=== PATIENT | female | born 1955 | race Caucasian/White ===

== ENCOUNTER → 2018-04-23 | Outpatient (CLI) | payer OTHER | LOC: FIMAGING 10:41 | PROVIDERS: ATTEND Internal Medicine | DX: J34.89 Other specified disorders of nose and nasal sinuses (principal) ==

== ENCOUNTER 2018-05-28 04:19 | Observation (INO) | payer OTHER ==
[2018-05-28] MEDS ORDERED: ONDANSETRON 4 MG/2 ML VIAL IVP ONE ×2 (04:27→06:04)
[2018-05-28] MEDS ORDERED: NS 1,000 ML IV ONE ×3 (04:27→07:02)
--- NOTE | 2018-05-28 04:37 | EDPHY ---
H & P Stated Complaint: Abd pain, nausea x2 days, abd cramping Time Seen by Provider: 05/28/18 04:35 HPI/ROS: HPI CHIEF COMPLAINT: Abdominal pain, nausea, vomiting. 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 Denies any diarrhea. Last bowel movement was 2 days ago. Brown stool. No blood. She reports she has been ill with abdominal issue since around the new year's this happened her multiple times she did see her primary care doctor and was told she most likely has a viral illness. She denies any shortness of breath. Denies significant chest pain. She does have a rather bad nausea. Diffuse abdominal pain and abdominal cramping. She denies any fever. She does report that when she goes to eat she is able to keep down however has rather significant nausea after eating abdominal upset with bloating , states her abdomen hurts hearing gurgles. Past Medical History: Denies significant medical history Past Surgical History: Denies significant surgical history Social History: Social alcohol, denies daily use of drugs or tobacco. She is an OR nurse at [employer]. Family History: Noncontributory ROS REVIEW OF SYSTEMS: 10 Systems were reviewed and negative with the exception of the elements mentioned in the history of present illness. Exam Constitutional appears well nontoxic triage nursing summary reviewed, vital signs reviewed, awake/alert. Vital signs stable Eyes normal conjunctivae and sclera, EOMI, PERRLA. HENT normal inspection, atraumatic, moist mucus membranes, no epistaxis, neck supple/ no meningismus, no raccoon eyes. Respiratory clear to auscultation bilaterally, normal breath sounds, no respiratory distress, no wheezing. Cardiovascular rate normal, regular rhythm, no murmur, no edema, distal pulses normal. Gastrointestinal mild tender palpation diffusely, no peritoneal signs. Genitourinary no CVA tenderness. Musculoskeletal no midline vertebral tenderness, full range of motion, no calf swelling, no tenderness of extremities, no meningismus, good pulses, neurovascularly intact. Skin pink, warm, & dry, no rash, skin atraumatic. Neurologic awake, alert and oriented x 3, AAOx3, moves all 4 extremities equally, motor intact, sensory intact, CN II-XII intact, normal cerebellar, normal vision, normal speech. Psychiatric normal mood/affect. Heme/Lymph/Immune no lymphadenopathy. Differential Diagnosis: Differential diagnosis includes but is not limited to and in no particular order: Bowel obstruction, appendicitis, gallbladder disease, diverticulitis, colitis, enteritis, perforated viscus, gastritis, GERD , esophagitis, urinary tract infection, pyelonephritis, kidney stones Medical Decision Making: Plan for this patient IV establishment IV fluid bolus 2 L, basic labs, CT scan abdomen pelvis with IV contrast, stool studies, IV Zofran nausea. Re-evaluate Re-evaluation: CT scan abdomen pelvis with IV contrast faxed to me by direct Radiology at 5:35 a.m. This shows suspected tiny calcified gallstones no CT signs of cholecystitis there is colonic diverticulosis without signs of diverticulitis Additionally in the detailed report there is a peripheral left lower lobe nodular density measuring 4.3 mm. Point care troponin 0.00 EKG interpretation by me on record in [employer] system. Impression time of EKG 4:40 a.m., sinus rhythm rate of 66, Q-waves noted V1 V2 no significant acute ischemia. Repeat EKG time 6:44 a.m., sinus rhythm Q-waves noted again V1 V2 EKG performed due to nausea patient has no chest pain. Appreciate acute ischemia otherwise. Patient is received 2 L of fluid, additionally IV Zofran 4 mg dose x2, has persistent nausea, IV Phenergan 6.25 mg ordered. Ultrasound results of the gallbladder pending Repeat troponin 0.02. Ultrasound of the gallbladder shows no significant sonographic abnormality. Faxed me by direct Radiology 6:27 a.m.. 0701: Patient re-evaluated at this time: Still complains of ongoing nausea no chest pain or shortness of breath she does complain of some lower abdominal cramps. . Given her ongoing symptoms plan will be for admission the hospital for observation for ongoing nausea and abdominal cramps. The patient's blood work, CT scan, ultrasound, lab work is rather unremarkable. I do not have a great explanation for nausea. She has no chest pain or shortness of breath. Her troponins have been negative. The patient has had negative troponins x2, EKG showed Q-wave through V1 V2 on both EKGs. Her EKGs appear Abnormal I will consult Cardiology as she has nausea. She has no chest pain shortness of breath or troponin negative x2. I did discuss her EKGs and troponins with the hospitalist service. Due to ongoing nausea she would like to be admitted. Plan for admission 3rd L fluid hung. Stool studies ordered. I will consult the hospitalist service. 0721: I did consult Cardiology Dr. Yoselin Shaffer and has sent her the patient's EKGs for further evaluation. Again the patient has no chest pain or troponins are negative. Cardiology service will see patient, does not feel this is a STEMI. Would continue to admit patient for nausea/ cardiology service to see. Source: Patient - Personal History Current Tetanus Diphtheria and Acellular Pertussis (TDAP): Yes - Medical/Surgical History Hx Asthma: No Hx Chronic Respiratory Disease: No Hx Diabetes: No Hx Cardiac Disease: No Hx Renal Disease: No Hx Cirrhosis: No Hx Alcoholism: No Hx HIV/AIDS: No Hx Splenectomy or Spleen Trauma: No Other PMH: Tonsiletomy - Social History Smoking Status: Never smoked Constitutional: Initial Vital Signs Temperature (C) 36.8 C 05/28/18 04:20 Heart Rate 77 05/28/18 04:20 Respiratory Rate 17 05/28/18 04:20 Blood Pressure 143/84 H 05/28/18 04:20 O2 Sat (%) 96 05/28/18 04:20 O2 Delivery Mode Room Air Allergies/Adverse Reactions: Penicillins Allergy (Unknown, Verified 05/28/18 07:42) Rash Home Medications: Medication Instructions Recorded Aspirin [Aspirin 81mg (*)] 81 mg PO DAILY 05/18/13 Multivitamins [Multivitamin (*)] 1 each PO DAILY 07/11/14 Acetaminophen [Tylenol 325mg (*)] 325 mg PO Q6 PRN 05/28/18 Glucosamine Sulfate [Glucosamine 500 mg PO DAILY 05/28/18 Sulfate 500 MG (*)] Ondansetron Odt [Zofran Odt 4 mg 4 mg PO Q4 #30 tab 05/28/18 (*)] Medical Decision Making - Data Points Laboratory Results: Laboratory Results 05/28/18 04:25 05/28/18 04:25 Medications Given: Discontinued Medications Famotidine (Pepcid) 20 mg IVP EDNOW ONE Stop: 05/28/18 07:09 Last Admin: 05/28/18 07:31 Dose: 20 mg Sodium Chloride (Ns) 1,000 mls @ 0 mls/hr IV EDNOW ONE; Wide Open PRN Reason: Protocol Stop: 05/28/18 04:28 Last Admin: 05/28/18 04:33 Dose: 1,000 mls Sodium Chloride (Ns) 1,000 mls @ 0 mls/hr IV EDNOW ONE; Wide Open PRN Reason: Protocol Stop: 05/28/18 04:28 Last Admin: 05/28/18 04:33 Dose: 1,000 mls Sodium Chloride (Ns) 1,000 mls @ 0 mls/hr IV ONCE ONE PRN Reason: Wide Open Stop: 05/28/18 07:03 Last Admin: 05/28/18 07:07 Dose: 1,000 mls Metoprolol Tartrate (Lopressor) 12.5 mg PO BID LINDA Stop: 11/24/18 11:14 Last Admin: 05/28/18 13:33 Dose: 12.5 mg Ondansetron HCl (Zofran) 4 mg IVP EDNOW ONE Stop: 05/28/18 04:28 Last Admin: 05/28/18 04:38 Dose: 4 mg Ondansetron HCl (Zofran) 4 mg IVP EDNOW ONE Stop: 05/28/18 06:05 Last Admin: 05/28/18 06:12 Dose: 4 mg Promethazine HCl (Phenergan) 6.25 mg IVP EDNOW ONE Stop: 05/28/18 06:44 Last Admin: 05/28/18 06:43 Dose: 6.25 mg Point of Care Test Results: Chemistry 05/28/18 05/28/18 06:42 04:37 POC Troponin I 0.02 ng/mL ng/mL 0.00 ng/mL ng/mL (0.00-0.08) (0.00-0.08) Departure - Departure Disposition: [facility] Acute Clinical Impression: Nausea, Pulmonary nodule, Abnormal EKG Abdominal pain Qualifiers: Abdominal location: unspecified location Qualified Code(s): R10.9 - Unspecified abdominal pain Condition: Fair
[2018-05-28 04:46] LABS: PLATELET COUNT 242 10^3/uL (150-400)
[2018-05-28 04:54] LABS: INR 0.9 (0.83-1.16); PROTIME(PATIENT) 11.8 SEC (12.0-15.0)
[2018-05-28] MEDS ORDERED: IOPAMIDOL (ISOVUE-300) 100 ML BTL ONE (05:07)
[2018-05-28] MEDS ORDERED: PROMETHAZINE HCL 25 MG/ML INJ ONE (06:42)
[2018-05-28] MEDS ORDERED: PROMETHAZINE HCL 25 MG/ML INJ IVP ONE (06:43)
[2018-05-28] MEDS ORDERED: FAMOTIDINE 20 MG/2 ML SDV IVP ONE (07:08)
[2018-05-28] MEDS ORDERED: PROMETHAZINE HCL 25 MG/ML INJ IVP PRN (07:14)
[2018-05-28] MEDS ORDERED: LORazepam 0.5 MG TAB PO PRN (07:14)
[2018-05-28] MEDS ORDERED: diphenhydrAMINE 25 MG CAP PO PRN (07:14)
[2018-05-28] MEDS ORDERED: ONDANSETRON 4 MG/2 ML VIAL IVP PRN (07:14)
[2018-05-28] MEDS ORDERED: IBUPROFEN 200 MG TAB PO PRN (07:14)
[2018-05-28] MEDS ORDERED: ONDANSETRON DISINTEGRATING 4 MG TAB PO PRN (07:14)
[2018-05-28] MEDS ORDERED: ACETAMINOPHEN 325 MG TAB PO PRN ×2 (07:14→10:48)
[2018-05-28] MEDS ORDERED: METOPROLOL TARTRATE 25 MG TAB PO SCH (11:15)
--- NOTE | 2018-05-28 11:29 | GHP ---
[f rep st] HISTORY AND PHYSICAL DATE OF ADMISSION: 05/28/2018 CHIEF COMPLAINT: Abdominal pain. HISTORY OF PRESENT ILLNESS: This is a 63-year-old female who began having abdominal discomfort on , described as whole abdomen, a "gurgling" sound with significant colicky-type pain. It i s alleviated with Imodium that she has been taking. She is having relatively normal bowel movements, although they have been slightly soft. She had some severe nausea today, but no emesis. She had no t had any recent travel. Her has had similar, though not quite as severe, symptoms. She has seen her PCP a few times for it. He started her on Prilosec, but this did not seem to help. She dooley d a celiac panel that was negative. She tried a lactose-free diet, as well as a gluten-free diet whi ch did not have any effect on her symptoms. These seem to occur about once a week. She has never dooley d an endoscopy or colonoscopy before. In the emergency department, an EKG was checked which showed Q-waves in leads V1 and V2. She has had occasional twinges of pain over her left lower ribs. She is able to exercise without any change in her exercise tolerance. She has never had any lower extremity edema. She does not have any history of early family coronary disease. She has had a mildly elevated LDL in the past. PAST MEDICAL/SURGICAL HISTORY: Tonsillectomy. MEDICATIONS: Please see medication reconciliation. ALLERGIES: Penicillin. FAMILY HISTORY: Her mother had a stroke at 96 years old. SOCIAL HISTORY: She does not smoke. She occasionally drinks alcohol. REVIEW OF SYSTEMS: A 10-point review of systems is conducted and is negative except per HPI. PHYSICAL EXAM: VITAL SIGNS: Blood pressure 179/85, heart rate 72, respiration rate 12, saturating 9 6% on room air, temperature 36.9. GENERAL: Ms. Staley is a pleasant female who is resting comfortab ly in no acute distress. HEENT: Shows her to be normocephalic, atraumatic. CARDIOVASCULAR: Regula r rate and rhythm. There is no murmurs, rubs, or gallops. No elevated JVD. No lower extremity loretta a. PULMONARY: Lungs clear to auscultation bilaterally. ABDOMEN: Soft, nontender, nondistended. S he has normal bowel sounds. SKIN: No rash. : No [place]. NEUROLOGIC: Shows her to be alert and oriented x3. She is moving all extremities. PSYCHIATRIC: Normal mood and affect. LABORATORY DATA: Labs show a white count of 8, INR 0.9, lactate 1.1, creatinine 1.2. Initial two tr oponins are negative. Urinalysis is negative. DATA: 1. Discussed with Dr. Zapata. 2. Abdominal CT shows nothing acute. 3. Right upper quadrant ultrasound is normal. 4. EKG, which I personally viewed and interpreted, shows Q-waves with a biphasic T-wave in leads V1 and V2. IMPRESSION AND PLAN: 1. Abdominal pain: It is not really clear what is causing this. She has negative imaging, normal l abs, unremarkable exam. I have discussed with Dr. Blunt who will consult. We will treat her sympt omatically for now. She will get IV proton pump inhibitor, as well as antiemetics as needed. 2. Abnormal EKG: Cardiology has been consulted by the emergency department. We will defer further workup to her. We will place her on telemetry for now. 3. Hypertension: We will give her low-dose metoprolol oral for now. I do not think this represents hypertensive emergency at this point. We will follow her blood pressure with treatment with oral ag ents. /[id number]/MODL
--- NOTE | 2018-05-28 12:36 | ASMTCMCOM ---
CM Note CM Note Notes: CM reviewed patients chart. Patient is a 63 year old female. Admitted for abdominal pain. Patient will mostly likely discharge independent when medically stable. CM available for changes. Plan: Independent Date Signed: 05/28/2018 12:34 PM Electronically Signed By:Guerline Hylton
--- NOTE | 2018-05-28 14:41 | PDCARCONS ---
Cardiology Consult Reason for Consult: Nausea with ECG changes noted Chief Complaint: Nausea Requesting Physician: Hospitalist team History of Present Illness: Patient is a 63 y/o female with relatively unremarkable past medical/ cardiovascular history (no CAD, HTN, HLP, or DM), who presents to [facility] ER with complaints of relatively intractable nausea. Since the beginning of the year, the patient has noted several bouts of nausea with abdominal cramping and pains about every 7-10 days. No changes to bowel movements have been noted - no diarrhea or constipation, but as a result of the nausea, weight loss of about 20 pounds has been noted. No chest pains or pressure (but there was a mild left lower lateral "twinge" noted with this most recent event), no PND or orthopnea. No fevers or chills (, present in the room questioned if there were bouts of fever possibly noted). No emesis has been noted with the nausea. Work with PCP has not revealed any obvious etiology. Treatment that has worked for the patient has been Imodium and PPI therapy. No international travel. Trial with gluten free diet has not resulted in improvement of symptoms. Regular exercise (riding horses three times per week) without new limitations noted. One of her best days was the day prior to this most recent event. At present, the patient is resting comfortably. Remainder of the 12 point review of systems was unremarkable History Information - Allergies/Home Medication List Allergies/Adverse Reactions: Penicillins Allergy (Unknown, Verified 05/28/18 07:42) Rash Home Medications: Aspirin [Aspirin 81mg (*)] 81 mg PO DAILY 05/18/13 [Last Taken 05/25/18] Multivitamins [Multivitamin (*)] 1 each PO DAILY 07/11/14 [Last Taken 05/25/18] Acetaminophen [Tylenol 325mg (*)] 325 mg PO Q6 PRN 05/28/18 [Last Taken Unknown] Glucosamine Sulfate [Glucosamine Sulfate 500 MG (*)] 500 mg PO DAILY 05/28/18 [ Last Taken Unknown] I have personally reviewed and updated: family history, medical history, social history, surgical history Past Medical History: - Past Medical History no pertinent PMH - Surgical History Reports: no pertinent surgical hx - Family History Positive for: stroke - Social History Smoking Status: Never smoked Alcohol Use: Rarely Drug Use: None Cardiac History - Cardiac History Cardiac Risk Factors: none Timing/Duration: Weeks Severity: moderate, severe Severity Scale: 7 Location: epigastric Activities at Onset: none Modifying Factors: improves with: antacids Associated Symptoms: loss of appetite Physical Exam Physical Exam: Temp Pulse Resp BP Pulse Ox 36.7 C 67 16 173/95 H 95 05/28/18 13:20 05/28/18 13:20 05/28/18 13:20 05/28/18 13:20 05/28/18 13:20 Constitutional: no apparent distress, appears nourished, not in pain Eyes: PERRL, EOMI Ears, Nose, Mouth, Throat: moist mucous membranes, hearing normal, ears appear normal Cardiovascular: regular rate and rhythym, no murmur, rub, or gallop, pulses symmetric bilaterally, No systolic murmur, No diastolic murmur, No JVD Peripheral Pulses: 2+: dorsalis-pedis (R), dorsalis-pedis (L) Respiratory: no respiratory distress, no rales or rhonchi, clear to auscultation Gastrointestinal: normoactive bowel sounds Skin: warm, normal color Musculoskeletal: full muscle strength Neurologic: AAOx3, sensation intact bilaterally, CN II-XII Intact Psychiatric: interacting appropriately, not anxious, not encephalopathic Lab and Imaging 05/28/18 04:25 05/28/18 04:25 WBC 8.12 10^3/uL (3.80-9.50) 05/28/18 04:25 RBC 5.25 10^6/uL (4.18-5.33) 05/28/18 04:25 Hgb 16.1 g/dL (12.6-16.3) 05/28/18 04:25 Hct 46.8 % (38.0-47.0) 05/28/18 04:25 MCV 89.1 fL (81.5-99.8) 05/28/18 04:25 MCH 30.7 pg (27.9-34.1) 05/28/18 04:25 MCHC 34.4 g/dL (32.4-36.7) 05/28/18 04:25 RDW 12.3 % (11.5-15.2) 05/28/18 04:25 Plt Count 242 10^3/uL (150-400) 05/28/18 04:25 MPV 10.3 fL (8.7-11.7) 05/28/18 04:25 Neut % (Auto) 44.0 % (39.3-74.2) 05/28/18 04:25 Lymph % (Auto) 39.0 % (15.0-45.0) 05/28/18 04:25 [place] % (Auto) 12.3 % (4.5-13.0) 05/28/18 04:25 Eos % (Auto) 2.5 % (0.6-7.6) 05/28/18 04:25 Baso % (Auto) 2.0 % (0.3-1.7) H 05/28/18 04:25 Nucleat RBC Rel Count 0.0 % (0.0-0.2) 05/28/18 04:25 Absolute Neuts (auto) 3.57 10^3/uL (1.70-6.50) 05/28/18 04:25 Absolute Lymphs (auto) 3.17 10^3/uL (1.00-3.00) H 05/28/18 04:25 Absolute Monos (auto) 1.00 10^3/uL (0.30-0.80) H 05/28/18 04:25 Absolute Eos (auto) 0.20 10^3/uL (0.03-0.40) 05/28/18 04:25 Absolute Basos (auto) 0.16 10^3/uL (0.02-0.10) H 05/28/18 04:25 Absolute Nucleated RBC 0.00 10^3/uL (0-0.01) 05/28/18 04:25 Immature Gran % 0.2 % (0.0-1.1) 05/28/18 04:25 Immature Gran # 0.02 10^3/uL (0.00-0.10) 05/28/18 04:25 PT 11.8 SEC (12.0-15.0) L 05/28/18 04:25 INR 0.90 (0.83-1.16) 05/28/18 04:25 APTT 25.2 SEC (23.0-38.0) 05/28/18 04:25 VBG Lactic Acid 1.1 mmol/L (0.7-2.1) 05/28/18 04:25 Sodium 141 mEq/L (135-145) 05/28/18 04:25 Potassium 4.2 mEq/L (3.5-5.2) 05/28/18 04:25 Chloride 111 mEq/L (97-110) H 05/28/18 04:25 Carbon Dioxide 23 mEq/l (22-31) 05/28/18 04:25 Anion Gap 7 mEq/L (6-14) 05/28/18 04:25 BUN 14 mg/dL (7-23) 05/28/18 04:25 Creatinine 1.2 mg/dL (0.6-1.0) H 05/28/18 04:25 Estimated GFR 45 05/28/18 04:25 Glucose 99 mg/dL (70-100) 05/28/18 04:25 Calcium 10.0 mg/dL (8.5-10.4) 05/28/18 04:25 Total Bilirubin 0.6 mg/dL (0.1-1.4) 05/28/18 04:25 Conjugated Bilirubin 0.3 mg/dL (0.0-0.5) 05/28/18 04:25 Unconjugated Bilirubin 0.3 mg/dL (0.0-1.1) 05/28/18 04:25 AST 21 IU/L (14-46) 05/28/18 04:25 ALT 29 IU/L (9-52) 05/28/18 04:25 Alkaline Phosphatase 75 IU/L (38-126) 05/28/18 04:25 POC Troponin I 0.02 ng/mL (0.00-0.08) 05/28/18 06:42 Troponin I < 0.012 ng/mL (0.000-0.034) 05/28/18 12:54 Total Protein 6.9 g/dL (6.3-8.2) 05/28/18 04:25 Albumin 4.2 g/dL (3.5-5.0) 05/28/18 04:25 Lipase 102 IU/L (23-300) 05/28/18 04:25 Urine Color PALE YELLOW 05/28/18 04:35 Urine Appearance CLEAR 05/28/18 04:35 Urine pH 6.0 (5.0-7.5) 05/28/18 04:35 Ur Specific [place] 1.008 (1.002-1.030) 05/28/18 04:35 Urine Protein NEGATIVE (NEGATIVE) 05/28/18 04:35 Urine Ketones NEGATIVE (NEGATIVE) 05/28/18 04:35 Urine Blood NEGATIVE (NEGATIVE) 05/28/18 04:35 Urine Nitrate NEGATIVE (NEGATIVE) 05/28/18 04:35 Urine Bilirubin NEGATIVE (NEGATIVE) 05/28/18 04:35 Urine Urobilinogen NEGATIVE EU (0.2-1.0) 05/28/18 04:35 Ur Leukocyte Esterase NEGATIVE (NEGATIVE) 05/28/18 04:35 Urine Glucose NEGATIVE (NEGATIVE) 05/28/18 04:35 Visualized and Interpreted Chest x-ray results: No Visualized and Interpreted imaging results: Yes Interpretation: no gross pathology on CT of abdomen EKG Interpretation: Positive for: normal sinsus rhythm Telemetry: sinus rhythm A/P Assessment: Patient is a 63 y/o female with unremarkable past cardiovascular history. Nausea (severe) for the past several months with some degree of frequency/ cycle. No cardiac biomarker elevation with this most recent event. ST/T wave changes were noted on V2 of most recent ECG. No cardiovascular symptoms. Plan: (1) Repeat ECG now (2) Echocardiography for assessment of LVEF, wall motion, chamber dimensions, and valve morphology (3) Outpatient ETT can be scheduled (4) Consider markers of inflammation (CRP, LP(a)) for assessment of inflammatory burden (5) Would be helpful to have most recent cholesterol labs
--- NOTE | 2018-05-28 16:52 | ECHO ---
[email or web address] [address] Main: [phone] Echocardiography Examination Transthoracic Name: LANDON FUNEZ MR#: [id number] Study Date: 05/28/2018 Study Time: 03:32 PM Date of : 1955 Age: 63 year(s) Height: 167.6 cm (66 in.) Weight: 68.04 kg (150 lb.) BSA: 1.77 m2 Gender: Female Examination: Echo Contrast: Image Quality: Adequate Rhythm: Heart Rate: BP: 173 mmHg/95 mmHg Indication: nausea Procedure Staff Referring Physician: Chief Pilot: Annie Arzola [facility] Reading Physician: Juan Miguel Smith MD Requesting Provider: Ordering Physician: Juan Miguel Smith MD Indication: nausea Measurements Chambers AV/MV Label Value Normal Value Label Value Normal Value LVOTd 1.7 cm (1.8cm - 2cm) AV PGmax 17 mmHg LVDd, 2D 3.8 cm (3.9cm - 5.3cm) AV PGmean 10 mmHg LVDs, 2D 2.4 cm (2.1cm - 4cm) AV Vmax 2 m/s IVSd, 2D 1.1 cm (0.6cm - 1.1cm) BARRETT (VTI) 1.4 cm2 LVPWd, 2D 1.1 cm MV E Vmax 0.85 m/s LVEF, BP 65 % (55% - 70%) MV A Vmax 0.94 m/s LVEF, 2D 67 % (54% - 74%) MV E/A 0.9 LVOT PGmean 4 mmHg MV E/E' lateral 7.5 LVOT Vmean 0.96 m/s MV E/E' septal 9.3 (0.45 - 1.25) EF lower range (%) 60 % MV DT 257 ms EF upper range (%) 65 % MV E' septal 0.09 m/s RVDd, 2D 3 cm (1.9cm - 3.8cm) MV PHT 0.07 s LA Volume, BP 53 ml (22ml - 52ml) MVA PHT 3 cm2 LADs, 2D 3 cm (2.7cm - 3.8cm) MV E' lateral 0.11 m/s LAESV index, BP 29.9 ml/m2 MV E/E' mean 8.5 RA Area 19.4 cm2 MV PHT 74 ms Additional Vessels MV E' mean 0.1 m/s Label Value Normal Value TV/PV AoAsc 2.3 cm Label Value Normal Value Patient: LANDON FUNEZ Study Date: 05/28/2018 Page 1 of 3 03:32 PM AoRoot, 2D 2.6 cm (1.4cm - 2.6cm) RA Pressure 5 mmHg IVC 1.9 cm (1.2cm - 2.3cm) RVSP 34 mmHg TR Pmax 29 mmHg TR Vmax 2.67 m/s PV PGmax 3 mmHg PV Vmax, Caliper 0.88 m/s (0.6m/s - 0.9m/s) Conclusions (1) Left ventricular systolic ejection fraction was normal (65%) - normal wall motion - no LVH (2) Normal RV size and function (3) Normal atrial dimensions (4) Mild MR (5) Trileaflet aortic valve with mild stenosis (mean gradient of 10 mm Hg), but no AI (6) Mild TR - RVSP was estimated to be 30-35 mm Hg (7) Trivial PI (8) Normal aorta dimensions Findings Left Ventricle: Left ventricle is normal in size. Normal global systolic left ventricular function. The ejection fraction, measured by Simpsons method, is 65 %. EF range is estimated at 60 % - 65 %. There are no regional wall motion abnormalities. Left ventricular diastolic function parameters are normal. No LV hypertrophy. Right Ventricle: Normal size right ventricle. Right ventricular systolic function is normal. Left Atrium: The left atrium is normal in size. Right Atrium: The right atrium is normal in size. Mitral Valve: Mitral valve appears structurally normal. Mild mitral regurgitation. No mitral valve stenosis. Aortic Valve: Aortic leaflets are structurally normal. No significant aortic valve regurgitation. There is trivial aortic stenosis. Tricuspid Valve: Tricuspid valve leaflets are structurally normal. Mild tricuspid regurgitation. No tricuspid valve stenosis. Right Ventricular systolic pressure is measured at 34 mmHg. Pulmonary artery pressure normal. Pulmonic Valve: Pulmonic leaflets are structurally normal. Trivial pulmonic valve regurgitation is present. Aorta: The aortic root size in 2D measures 2.6 cm. The ascending aorta measures 2.3 cm. Aorta Measurements AoRoot, 2D is 2.6 cm. IVC: The inferior vena cava is normal in size. Pericardium: No pericardial effusion. Exam Details Procedure Ordered: Echo Procedure Status: Routine study Patient: LANDON FUNEZ Study Date: 05/28/2018 Page 2 of 3 03:32 PM Image Quality: Adequate Facility Location: Cardiac Echo 1 (No Signature Object) Patient: LANDON FUNEZ Study Date: 05/28/2018 Page 3 of 3 03:32 PM [id number]
[2018-05-28 17:27] VITALS: BP 156/66
--- NOTE | 2018-05-28 19:00 | GCON ---
[f rep st] CONSULTATION REFERRING PHYSICIAN: Hayden Quiroga MD CHIEF COMPLAINT: A 63-year-old woman with abdominal bloating, altered bowel habits. HISTORY OF PRESENT ILLNESS: I have been asked to see this very pleasant 63-year -old woman in consultation by Dr. Hayden Quiroga for evaluation of GI symptoms to include abdominal discomfort. However, patient was admitted to the hospital for an abnormal EKG and is undergoing cardiac evaluation. GI symptoms started in January of 2018. She described intermittent colicky abdominal discomfort with increased intestinal noise, typically followed by loose stool. Symptoms were sporadic and occurred about every week. No particular alleviating or aggravating factors. She cannot identify any food triggers. She has had increasing intestinal gas and flatus, as well as some belching. She has had significant nausea without vomiting. She has been having chills but no fevers. She does have occasional heartburn. She has had no prior significant GI history or symptoms. She has no recent travel. No use recent antibiotic use. She has not had a previous colonoscopy or endoscopy. She denies any blood per rectum or mucus discharge. The patient presented to the hospital with increasing problems with nausea. She has been taking intermittent Imodium and Pepto-Bismol. She has also tried taking a probiotic at home. On arrival to the emergency department she was found to have EKG changes showing Q-waves in leads V1 and V2. She is undergoing cardiac evaluation. PAST MEDICAL HISTORY: Negative. PAST SURGICAL HISTORY: Remarkable for tonsillectomy and adenoidectomy as a child. MEDICATIONS: Prior to admission include aspirin, multivitamins. ALLERGIES: Penicillin. FAMILY HISTORY: Negative and noncontributory per chief complaint. SOCIAL HISTORY: She is a nurse at [employer]. Nonsmoker. Drinks only occasional alcohol. REVIEW OF SYSTEMS: Negative for 10 systems other than mentioned in HPI. PHYSICAL EXAM: VITAL SIGNS: 173/95, 36.7, heart rate of 67, respiratory rate 16, 95% sat. GENERAL: Very pleasant woman, in no acute distress. HEENT: Normocephalic, atraumatic. EOMI. NECK: Supple. No cervical adenopathy. Mucous membranes moist. LUNGS: Clear. CARDIAC: Normal S1 and S2, without murmur. ABDOMEN: Benign, soft. No hepatosplenomegaly. Nontender. EXTREMITIES: Without clubbing, cyanosis, edema. NEURO: Nonfocal. SKIN: Warm , dry, intact. PSYCH: Alert and oriented x3 with normal affect. LABORATORY DATA: CBC was normal with hemoglobin 16.1, hematocrit 46.8, white count of 8.12. Serum chemistries were normal with normal liver function tests. AST of 21, ALT of 29, alk phose of 75. Abdominal ultrasound normal. Normal appearing liver and biliary tract. CT scan of the abdomen was also normal. IMPRESSION/RECOMMENDATIONS: A 63-year-old woman with change in bowel habits, nausea, abdominal bloating. We will recommend diagnostic endoscopy with small bowel biopsies and colonoscopy to evaluate for colonoscopy. The patient wishes to do this as an outpatient after cardiac workup. We will sign off. We will arrange for outpatient workup for upper endoscopy and colonoscopy. Patient requests propofol for her procedure. Please call with any further questions during this hospitalization. Thank you for letting me participate in the care of this patient. /[id number]/MODL MTDD
--- NOTE | 2018-05-28 19:19 | GDS ---
[f rep st] DISCHARGE SUMMARY ALL DIAGNOSES: 1. Unexplained abdominal pain and nausea. 2. Abnormal EKG with mild biphasic T-wave in lead V2. 3. Hypertension. 4. Trivial aortic stenosis. 5. Mildly elevated creatinine. HOSPITAL COURSE: This is a 63-year-old female, who presented with abdominal pain and nausea. This h as been going on for 3 months. She has seen her primary care physician multiple times for this. In the emergency room, an EKG was checked, which showed some mild biphasic T-waves. Thus, she was admit brittany for further observation. Serial troponins have been negative. She was seen by Dr. Smith of [facility], as well. Echocardiogram showed trivial aortic stenosis, though it did show normal wall quentin on. Her nausea and abdominal pain resolved. It is felt that she is safe for discharge with outpatie nt followup. FOLLOWUP: 1. Dr. York for ongoing management of her hypertension. Recommend ordering an outpatient stress t est either by Dr. York or by Cardiology. 2. Dr. Moon as previously scheduled for outpatient GI evaluation. She was seen by Dr. Naheed gibson, who felt as though this workup could be completed as an outpatient. 3. Dr. Smith with Cardiology for ongoing monitoring of her trivial aortic stenosis. /[id number]/MODL
[2018-05-28] MEDS ORDERED: PANTOPRAZOLE SODIUM 40 MG VIAL IVP SCH (21:00)
[2018-05-29] MEDS ORDERED: GLUCOSAMINE SULF 500 MG CAP PO SCH (09:00)
[2018-05-29] MEDS ORDERED: FAMOTIDINE 20 MG/NACL 50 ML IV SCH (09:00)
[2018-05-29] MEDS ORDERED: MULTIVITAMINS 1 EACH TAB PO SCH (09:00)
[2018-05-29] MEDS ORDERED: ASPIRIN 81 MG CHEWABLE TAB PO SCH (09:00)
--- NOTE | 2018-05-29 09:08 | CPEKG ---
Test Reason : OPEN Blood Pressure : / mmHG Vent. Rate : 063 BPM Atrial Rate : 063 BPM P-R Int : 164 ms QRS Dur : 086 ms QT Int : 401 ms P-R-T Axes : 084 080 057 degrees QTc Int : 411 ms Sinus rhythm Confirmed by Griffin Schwab ([id number]) on 05/29/2018 9:07:49 AM Referred By: Della Zapata Confirmed By:Griffin Schwab
--- NOTE | 2018-05-30 08:04 | CPEKG ---
Test Reason : OPEN Blood Pressure : / mmHG Vent. Rate : 070 BPM Atrial Rate : 071 BPM P-R Int : 157 ms QRS Dur : 083 ms QT Int : 401 ms P-R-T Axes : 084 080 057 degrees QTc Int : 433 ms Sinus rhythm Probable anteroseptal infarct, old Confirmed by Chip James ([id number]) on 05/30/2018 8:03:53 AM Referred By: Chip James Confirmed By:Chip James
--- NOTE | 2018-05-30 08:04 | CPEKG ---
Test Reason : OPEN Blood Pressure : / mmHG Vent. Rate : 066 BPM Atrial Rate : 065 BPM P-R Int : 145 ms QRS Dur : 091 ms QT Int : 399 ms P-R-T Axes : 079 070 045 degrees QTc Int : 418 ms Sinus rhythm Probable anteroseptal infarct, old Confirmed by Chip James ([id number]) on 05/30/2018 8:03:54 AM Referred By: Chip James Confirmed By:Chip James
== END 2018-05-28 19:02 | disposition home or self-care (01) ==
LOC: F2W 09:23
PROVIDERS: ADMIT Family Medicine; ATTEND Student in an Organized Health Care Education/Training Program
DX: R10.9 Unspecified abdominal pain (principal); R11.2 Nausea with vomiting, unspecified; R94.31 Abnormal electrocardiogram [ECG] [EKG]; I10 Essential (primary) hypertension
CPT/HCPCS: 74177; 76705; 93005; 93306; G0378; 84484-ER; 96374; J2405; J2550; Q9967

== ENCOUNTER 2018-08-17 07:08 | Observation (INO) | payer OTHER | END 2018-08-17 16:42 | disposition home or self-care (01) | LOC: F3E 12:23 ==